=== PATIENT | female | born 1990 | race Caucasian/White ===

== ENCOUNTER 2017-07-19 13:00 | Emergency (ER) | payer OTHER ==
[~2017-07-19] VITALS: Ht 160 cm; Wt 63.5 kg
--- NOTE | 2017-07-19 13:15 | NUR ---
PRESENTS TO ER C/O NECK PAIN SINCE THIS AM 10/10 PAIN. STATING SHE STRETCHED THIS MORNING AND HEARD A POP. PATIENT IS A/OX 4. BREATHING EVEN AND UNLABORED, VITALS STABLE. NO SOB. SAFETY AND COMFORT MEASURES IN PLACE. AWAITING MD ORDERS.
[2017-07-19] MEDS ORDERED: ACETAMINOPHEN 325 MG TABLET ONE (13:54)
[2017-07-19] MEDS ORDERED: ACETAMINOPHEN 650 MG/20.3 ML UDC PO ONE (14:00)
[2017-07-19] MEDS ORDERED: HYDROCODONE/APAP 5/325MG 1 EACH TABLET PO ONE (14:30)
[2017-07-19] MEDS ORDERED: HYDROCODONE/APAP 5/325MG 1 EACH TABLET ONE (14:34)
--- NOTE | 2017-07-19 14:40 | NUR ---
PATIENT REFUSED NORCO, MED RETURNED.
--- NOTE | 2017-07-19 15:00 | NUR ---
Patient discharged to home in stable condition. Written and verbal after care instructions given. Patient verbalizes understanding of instruction.
[2017-07-19 15:20] VITALS: BP 128/79
== END 2017-07-19 15:00 | disposition home or self-care (01) ==
LOC: ER 13:01
DX: O99.89 Other specified diseases and conditions complicating pregnancy, childbirth and the puerperium (principal); S16.1XXA Strain of muscle, fascia and tendon at neck level, initial encounter; Z3A.20 20 weeks gestation of pregnancy; Z88.1 Allergy status to other antibiotic agents; X58.XXXA Exposure to other specified factors, initial encounter; Y93.89 Activity, other specified; Y92.89 Other specified places as the place of occurrence of the external cause; Y99.8 Other external cause status
CPT/HCPCS: 99282; A4606; Z7610